=== PATIENT | female | born 1930 | race Caucasian/White ===

== ENCOUNTER → 2020-04-21 | Outpatient (CLI) | payer MEDICARE ==
[~2020-04-21] MED LIST: ALPR1TAB6 PO; AMLO2.5T5 PO; ASCO500T53 PO; BUPIVACAINE MPF 0.25% 10 ML VIAL. ONE; ENAL20TA10 PO; FOLI0.8C PO; HYDR-2145 PO; IBUP800T19 PO; IPRA15SP NS; LEVO100T5 PO; LIDOCAINE 1% PF 30 ML VIAL. ONE; MULT-245 PO; OMEP20TA8 PO; SIMV40TA18 PO; TRAZ-120 PO; UMEC1DIS IH; VITA50004 PO
[2020-04-21 11:11] VITALS: BP 150/75
== END | disposition home or self-care (01) ==
LOC: SURG 10:29
PROVIDERS: ATTEND Anesthesiology
DX: M47.817 Spondylosis without myelopathy or radiculopathy, lumbosacral region (principal); G89.29 Other chronic pain; Z79.899 Other long term (current) drug therapy
CPT/HCPCS: 64493; 64494; 64495; J2001; J3490

== ENCOUNTER → 2020-04-28 | Outpatient (CLI) | payer MEDICARE ==
[~2020-04-28] MED LIST changes: -BUPIVACAINE MPF 0.25% 10 ML VIAL. ONE; -LIDOCAINE 1% PF 30 ML VIAL. ONE
[2020-04-28 10:30] VITALS: BP 164/78
== END ==
LOC: SURG 13:00
PROVIDERS: ATTEND Anesthesiology
DX: M47.816 Spondylosis without myelopathy or radiculopathy, lumbar region (principal); M48.061 Spinal stenosis, lumbar region without neurogenic claudication
CPT/HCPCS: 99214; G0463